=== PATIENT | male | born 1955 | race American Indian/Alaskan Native ===

== ENCOUNTER 2023-02-17 15:02 | Inpatient (IN) | payer OTHER ==
[2023-02-17 16:40] VITALS: BMI 22.1
[2023-02-17] MEDS ORDERED: IBUPROFEN 400 MG TABLET (FP) PO PRN (19:25)
[2023-02-17] MEDS ORDERED: ACETAMINOPHEN 325 MG TABLET (FP) PO PRN (19:25)
[2023-02-17] MEDS ORDERED: BISMUTH SUBSALICYLATE 524 MG/30 ML PO PRN (19:25)
[2023-02-17] MEDS ORDERED: BENZONATATE 200 MG CAPSULE PO PRN (19:25)
[2023-02-17] MEDS ORDERED: ONDANSETRON *ODT* 4 MG TABLET SL PRN (19:25)
[2023-02-17] MEDS ORDERED: MAGNESIUM HYDROX 2400MG/30ML ORAL SUSPENSION 30 ML CUP PO PRN (19:25)
[2023-02-17] MEDS ORDERED: POLYETHYLENE GLYCOL (HEALTHYLAX) 3350 17 GM PACKET PO PRN (19:25)
[2023-02-17] MEDS ORDERED: BENZOCAINE/MENTHOL (CHLORASEPTIC ) LOZENGE MM PRN (19:25)
[2023-02-17] MEDS ORDERED: IBUPROFEN 600 MG TABLET (FP) PO PRN (19:25)
[2023-02-17] MEDS ORDERED: MAG HYDROX/AL HYDROX/SIMETH 30 ML UNIT-DOSE CUP PO PRN (19:25)
[2023-02-17] MEDS ORDERED: guaiFENesin 600 MG TABLET.ER (FP) PO PRN (19:25)
[2023-02-17] MEDS: MELATONIN 5 MG TABLETS PO SCH (22:09)
[2023-02-17] MEDS: THIAMINE HCL 100 MG TABLET (FP) PO SCH (22:09)
[2023-02-18] MEDS: ALBUTEROL SO4 HFA INHALER IH SCH ×4 (04:07→22:34)
[2023-02-18] MEDS ORDERED: chlordiazePOXIDE HCL 25 MG CAPSULE PO PRN (08:58)
[2023-02-18] MEDS ORDERED: cloNIDine HCL 0.1 MG TABLET PO ONE (09:01)
[2023-02-18] MEDS: PRENATAL VITAMINS W/ FOLIC ACID TABLET (FP) PO SCH (09:37)
[2023-02-18] MEDS: LOPERAMIDE HCL 2 MG CAPSULE PO PRN ×2 (09:43→17:11)
[2023-02-18] MEDS: chlordiazePOXIDE HCL 25 MG CAPSULE PO SCH ×3 (10:14→22:07)
[2023-02-18 10:37] LABS: CHLORIDE 101 mmol/L (98-107); POTASSIUM 3.7 mmol/L (3.5-5.1); SODIUM 139 mmol/L (136-145)
[2023-02-18 10:45] LABS: HEMOGLOBIN 12.6 GM/dL (11.7-16.9); MCH 28.9 pg (25.7-33.7); MCHC 33.1 g/dl (32.0-35.9); MEAN CELL VOLUME 87.2 fl (80-96); PLATELET COUNT 200 10^3/uL (134-434); RBC 4.36 M/mm3 (4.00-5.60); RDW 19.1 % (11.9-15.9); WHITE BLOOD COUNT 8.3 K/mm3 (4.0-10.0)
[2023-02-18 10:46] LABS: CALCIUM 9.4 mg/dL (8.5-10.1); GLUCOSE,RANDOM 109 mg/dL (74-106)
[2023-02-18 10:47] LABS: ALBUMIN 3.5 g/dl (3.4-5.0); ANION GAP 6 mmol/L (4-13); BLOOD UREA NITROGEN 9.9 mg/dL (7-18); CO2 32 mmol/L (21-32)
[2023-02-18 10:50] LABS: CREATININE 0.8 mg/dL (0.55-1.3); SGOT/AST 50 U/L (15-37); SGPT/ALT 48 U/L (13-61)
[2023-02-18 10:52] LABS: BILIRUBIN,TOTAL 1.6 mg/dL (0.2-1)
[2023-02-18 10:53] LABS: ALK PHOS 213 U/L (45-117)
[2023-02-18 10:54] LABS: TOT PROT 8.1 g/dl (6.4-8.2)
[2023-02-18] MEDS: THIAMINE HCL 100 MG TABLET (FP) PO SCH (22:09)
[2023-02-18] MEDS: MELATONIN 5 MG TABLETS PO SCH (22:11)
[2023-02-19] MEDS: ALBUTEROL SO4 HFA INHALER IH SCH ×4 (05:00→22:07)
[2023-02-19] MEDS: chlordiazePOXIDE HCL 25 MG CAPSULE PO SCH ×4 (05:21→22:06)
[2023-02-19] MEDS: PRENATAL VITAMINS W/ FOLIC ACID TABLET (FP) PO SCH (10:06)
[2023-02-19] MEDS: THIAMINE HCL 100 MG TABLET (FP) PO SCH (22:06)
[2023-02-19] MEDS: MELATONIN 5 MG TABLETS PO SCH (22:07)
[2023-02-20] MEDS: ALBUTEROL SO4 HFA INHALER IH SCH ×4 (04:12→22:35)
[2023-02-20] MEDS: chlordiazePOXIDE HCL 25 MG CAPSULE PO SCH ×4 (05:22→22:35)
[2023-02-20] MEDS: PRENATAL VITAMINS W/ FOLIC ACID TABLET (FP) PO SCH (10:10)
[2023-02-20] MEDS: THIAMINE HCL 100 MG TABLET (FP) PO SCH (22:35)
[2023-02-20] MEDS: MELATONIN 5 MG TABLETS PO SCH (22:35)
[2023-02-21] MEDS ORDERED: chlordiazePOXIDE HCL 10 MG CAPSULE PO PRN
[2023-02-21] MEDS: ALBUTEROL SO4 HFA INHALER IH SCH ×4 (04:55→22:21)
[2023-02-21] MEDS: chlordiazePOXIDE HCL 10 MG CAPSULE PO SCH ×4 (05:52→22:21)
[2023-02-21] MEDS: PRENATAL VITAMINS W/ FOLIC ACID TABLET (FP) PO SCH (10:10)
[2023-02-21] MEDS: THIAMINE HCL 100 MG TABLET (FP) PO SCH (22:21)
[2023-02-21] MEDS: MELATONIN 5 MG TABLETS PO SCH (22:21)
[2023-02-22] MEDS: ALBUTEROL SO4 HFA INHALER IH SCH (04:55)
[2023-02-22] MEDS: chlordiazePOXIDE HCL 10 MG CAPSULE PO SCH ×2 (05:38→17:50)
[2023-02-22] MEDS ORDERED: ALBUTEROL SO4 HFA INHALER IH PRN (08:13)
[2023-02-22] MEDS: PRENATAL VITAMINS W/ FOLIC ACID TABLET (FP) PO SCH (10:31)
[2023-02-22] MEDS: P-EPHED 60MG/TRIPROLIDI 2.5MG TABLET PO PRN (11:05)
[2023-02-22] MEDS ORDERED: METOPROLOL TARTRATE 50 MG TABLET (FP) PO ONE ×2 (19:09→20:35)
[2023-02-22] MEDS: THIAMINE HCL 100 MG TABLET (FP) PO SCH (22:32)
[2023-02-22] MEDS: MELATONIN 5 MG TABLETS PO SCH (22:32)
[2023-02-23] MEDS ORDERED: METOPROLOL TARTRATE 25 MG TABLET (FP) PO ONE (00:15)
[2023-02-23] MEDS ORDERED: chlordiazePOXIDE HCL 10 MG CAPSULE PO ONE (05:00)
[2023-02-23] MEDS: P-EPHED 60MG/TRIPROLIDI 2.5MG TABLET PO PRN (05:35)
[2023-02-23 09:06] VITALS: BP 131/85; PULSE 99; RESP 16; TEMP 97.9
[2023-02-23] MEDS: PRENATAL VITAMINS W/ FOLIC ACID TABLET (FP) PO SCH (09:42)
== END 2023-02-23 10:12 | disposition home or self-care (01) | DRG 897 ==
LOC: YASAS 15:02 → Y6N 21:27
PROVIDERS: ADMIT Allergy & Immunology; ATTEND Surgery
PROC: HZ2ZZZZ Detoxification Services for Substance Abuse Treatment (ICD-10-PCS; principal; 2023-02-17)
DX: F10.230 Alcohol dependence with withdrawal, uncomplicated (principal); F14.20 Cocaine dependence, uncomplicated; F12.20 Cannabis dependence, uncomplicated; J44.9 Chronic obstructive pulmonary disease, unspecified; J45.20 Mild intermittent asthma, uncomplicated; R03.0 Elevated blood-pressure reading, without diagnosis of hypertension; Z62.810 Personal history of physical and sexual abuse in childhood; Z87.891 Personal history of nicotine dependence
CPT/HCPCS: 36415; 71046-TC-FY; 80053; 80307; 82247; 84080; 85027; 86780; 86803; 87635; 93005; 93010